=== PATIENT | female | born 1970 | race Caucasian/White ===

== ENCOUNTER 2017-01-13 19:18 | Emergency (ER) | payer OTHER ==
--- NOTE | 2017-01-13 19:51 | ED.PDOC ---
History of Present Illness - General Chief Complaint: GI Problem Stated Complaint: rectal bleeding Time Seen by Provider: 01/13/17 19:21 Information Source: patient, RN notes reviewed, Vital Signs reviewed Exam Limitations: no limitations - History of Present Illness Initial Comments: Patient comes in with c/o rectal bleeding. Started with some spotting yesterday but worsened today. Prior to the episodes of bleeding she has crampy abd pain that spreads from her bilateral upper quadrants to her LLQ. Reports there is so much bleeding that it sounds like she is urinating in the toilet. She had a similar episode about 2 months ago. The bleeding lasted for 17 days and then stopped. She did not get seen or evaluated for the prior episode. No fever or chills. No N/V/D/C. Abdominal Pain Onset Location: generalized abdomen Pain Radiation: LLQ Quality: moderate, burning, cramping Timing/Duration: 24 hours Improving Factors: nothing Worsening Factors: nothing Associated Symptoms: fatigue, syncope - She passed out at home 8 days ago, weakness Review of Systems - Review of Systems Constitutional: States: malaise, weakness. 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 Surgical History: other - Cardiac ablation X 3 - Vaccination History Hx Tetanus, Diphtheria Vaccination: Yes Hx Influenza Vaccination: Yes Hx Pneumococcal Vaccination: Yes Immunizations Up to Date: Yes - Social History Hx Alcohol Use: No 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 - Female History Patient is a Female of Child Bearing Age (10 -59 yrs old): Yes Family Medical History - Family History Mother Family History: Unknown Physical Exam - Physical Exam General Appearance: Alert, Comfortable, No apparent distress, Obese, Well Developed, Well Groomed, Well Hydrated, Well Nourished Respiratory: chest non-tender, lungs clear, normal breath sounds, no respiratory distress, no accessory muscle use Cardiovascular/Chest: no edema, no gallop, no murmur, tachycardia Gastrointestinal/Abdominal: normal bowel sounds, soft, tenderness - Diffusely tender - tenderness seems to follow her whole colon Rectal Exam: normal rectal tone, hemorrhoids Back Exam: normal inspection Neurologic: alert, normal mood/affect, oriented x 3 Skin Exam: normal color, warm/dry Progress - Progress Progress: 01/13/17 20:47 Discussed normal labs and CT results with patient. Since she is hemodynamically stable and not anemic will d/c home and have her follow up with GI. She is agreeable with the plan. - Results/Orders Results/Orders: Laboratory Tests 01/13/17 01/13/17 20:10 20:10 WBC 9.0 RBC 4.72 Hgb 13.4 Hct 40.8 MCV 86.5 MCH 28.4 MCHC 32.9 L RDW 15.4 H Plt Count 247 MPV 7.6 Absolute Neuts (auto) 6.10 Absolute Lymphs (auto) 2.00 Absolute Monos (auto) 0.60 Absolute Eos (auto) 0.30 Absolute Basos (auto) 0.10 Neutrophils % 67.6 Lymphocytes % 21.6 Monocytes % 6.7 Eosinophils % 2.8 Basophils % 1.3 Sodium 138 Potassium 3.4 L Chloride 106 Carbon Dioxide 24 Anion Gap 11.4 L BUN 14 Creatinine 0.58 L BUN/Creatinine Ratio 24.1 H Random Glucose 137 H Serum Osmolality 278.3 Calcium 9.0 Total Bilirubin 0.3 AST 19 ALT 18 Alkaline Phosphatase 92 Serum Total Protein 7.5 Albumin 3.7 Globulin 3.8 H Albumin/Globulin Ratio 1.0 L - EKG/XRAY/CT CT Ordered: Yes - Abd/Pel:Diverticulosis, o/w no acute findings per Radiology Departure - Departure Clinical Impression: Hemorrhoids, external without complications, Rectal bleeding Time of Disposition: 20:49 Disposition: Discharge to Home or Self Care Condition: Good Departure Forms: ED Discharge - Pt. Copy, Patient Portal Self Enrollment Instructions: DI for Rectal Bleeding Diet: resume usual diet Activity: increase activity as tolerated Referrals: DIANE LÓPEZ [Primary Care Provider] - 1-2 Weeks Lito Elam MD [Consulting Staff] - 1-2 Days
--- NOTE | 2017-01-13 20:39 | CT ---
PROCEDURE: Abdomen/Pelvis w/Contrast HISTORY: abd pain with rectal bleeding Indication: Same as above Comparison: None . Technique: CT of the abdomen and pelvis was done with intravenous contrast. Images were obtained from the lung base to the level of the pubic symphysis in axial plane, followed by orthogonal sagittal and coronal reconstruction. Oral contrast was not given for the study. The patient was injected with contrast intravenously, without any documented immediate adverse reactions. This exam was performed according to our departmental dose-optimization program, which includes automated exposure control, adjustment of the mA and/or KV according to the patient's size and/or use of iterative reconstruction technique. FINDINGS: Images through the lung bases do not show any focal infiltrates or pleural effusions. The liver, gallbladder, pancreas, spleen and the bilateral adrenal glands appear unremarkable. The bilateral kidneys enhance with contrast in a normal fashion. The urinary bladder is unremarkable. An IUD is seen in the endometrial canal of the anteverted uterus . The bilateral ureters and the bilateral periureteral soft tissues and fat planes are unremarkable. The small bowel appears unremarkable, without any evidence of small bowel obstruction or bowel wall thickening. There is no CT evidence of acute appendicitis, pericecal inflammatory change or ileocecal mesenteric adenitis. The ileocecal junction appears unremarkable. There is no CT evidence of acute colonic diverticulitis or colitis or large bowel obstruction. There is mild large bowel diverticulosis The splenic and portal veins are of normal caliber, without any filling defects. There is no pathological lymphadenopathy in the retroperitoneum or in the pelvic region. There is no evidence of free fluid or free air in the abdomen or the pelvic region. There is no clinically significant abdominal aortic aneurysm. There is no clinically significant inguinal or ventral hernia. The visualized lumbar spine shows underlying mild multilevel degenerative change . The paravertebral soft tissues are unremarkable. The remainder of the pelvic structures are unremarkable. IMPRESSION: There are no acute findings on the current study. Large bowel diverticulosis without CT evidence of acute diverticulitis. Location of Interpretation: [facility] Electronically signed by: Manuel Austin MD 01/13/2017 8:39 PM CDT
[2017-01-13 21:16] VITALS: BP 131/67; TEMP 98.7; O2SAT 95
== END 2017-01-13 21:05 | disposition home or self-care (01) ==
LOC: ER 19:18
DX: K64.4 Residual hemorrhoidal skin tags (principal); K62.5 Hemorrhage of anus and rectum; I51.89 Other ill-defined heart diseases; Z79.899 Other long term (current) drug therapy

== ENCOUNTER → 2018-01-13 | Outpatient (CLI) | payer BC, OTHER ==
--- NOTE | 2018-01-13 13:24 | CT ---
EXAM DESCRIPTION: Chest w/o Contrast : Computed Tomography. CLINICAL HISTORY: Z87.01 COMPARISON: CTA chest 03/11/2014. TECHNIQUE: Spiral-axial scans at 5.0 mm intervals through the lungs and thorax without IV contrast. 2.5 mm lung algorithm axial reconstructions. Coronal and sagittal 2.0 Mm reconstructions. Total Exam DLP: 939.87 mGy-cm. This exam was performed according to our departmental dose-optimization program which includes automated exposure control, adjustment of the mA and/or kV according to patient size and/or use of iterative reconstruction technique; to reduce radiation dose to as low as reasonably achievable (ALARA). FINDINGS: Focal 3 mm pleural thickening abutting the anterior lateral base of the right upper lobe. (Series 4, image 49). No abnormal pulmonary nodules. No masses or infiltrates. No pleural effusion or pneumothorax. Evaluation of the soft tissues of the chest mediastinum and hilum is limited due to lack of IV contrast. Partial visualization of the heterogeneously dense thyroid gland. Low-density nodule measuring 1.55 cm in the left lobe. Multiple lymph nodes in the axilla are enlarged but fatty hilums are noted. No soft tissue masses in the mediastinum or hilum. No abnormal calcifications. Bilateral subglandular saline breast implants. Minimal lobulation of the capsules bilaterally. No subdiaphragmatic fluid in the included peritoneal space. Partial visualization of the adrenal glands and spleen are normal density. Partial visualization of pancreas liver upper kidneys and gallbladder. Minimal spondylosis in the included thoracic spine. Degenerative changes in the left sternoclavicular joint. IMPRESSION: Small focal pleural thickening right upper lobe, otherwise unremarkable. No follow-up recommended. No parenchymal nodules masses or infiltrates. Limited evaluation of soft tissues without IV contrast. Multiple bilateral axillary lymph nodes but with fatty hilums. 1.5 cm incidental thyroid nodule in the left lobe of the thyroid gland. Recommend ultrasound follow-up based upon [facility] Best Practice recommendations for imaging follow-up of incidental thyroid nodules utilizing ACR/Enriquez protocol. Please see below*. * 1.Further evaluation by thyroid US recommended for: -Solitary ITN with high risk imaging features (locally invasive nodule or suspicious lymph nodes) -Solitary ITN of any size in pediatric pts. <= 18 years of age -Solitary ITN >= 1 cm in axial plane in pts. between 18 and 35 years of age -Solitary ITN >= 1.5 cm in axial plane in pts >= 35 years of age -Heterogeneous enlarged thyroid gland -ITN avid on FDG-PET or other nuclear medicine (MIBI and octreotide) scans. FNA biopsy is also recommended for PET avid nodules. 2.No f/u imaging is recommended for ITNs not meeting the above criteria. 3.For multiple thyroid nodules, the above recommendations for solitary ITN are to be applied to the largest nodule. 4.No US or f/u recommended for ITNs without high risk features in pts. with limited life expectancy or significant co-morbidities, unless clinically warranted. 5.These recommendations do not apply to pts. w/ increased risk for thyroid cancer or pts. with symptomatic thyroid disease. Recommendations for f/u of Incidental Thyroid Nodules (ITN) found on CT, MR, NM and Extrathyroidal US are based upon the ACR white paper and Enriquez 3-tiered system for managing ITNs: J Am Kumar Radiol. 2015 Oct;12(2): 143-50 Electronically signed by: Ralph Alanis MD 01/13/2018 1:23 PM CDT
== END ==
LOC: CT 11:12
PROVIDERS: ATTEND Nurse Practitioner
DX: J92.9 Pleural plaque without asbestos (principal); Z87.01 Personal history of pneumonia (recurrent)

== ENCOUNTER → 2018-09-21 | Outpatient (CLI) | payer BC ==
--- NOTE | 2018-09-21 16:31 | MAM ---
EXAM DESCRIPTION: 3D Diagnostic, Bilateral: Digital Mammography CLINICAL HISTORY: 47 yearsFemaleLEFT BREAST LUMP . Soreness and tenderness associated with palpable lumps in the upper posterior left breast. No personal history of breast cancer. Remote family history of ovarian cancer but not breast cancer. Childbirth. Has IUD. No HRT. Bilateral breast augmentation 2003.. Lifetime risk of developing breast cancer (Tyrer-Cuzick model) percentage is 7.8. COMPARISON: Left breast targeted ultrasound as part of this examination. No prior reports available.. TECHNIQUE: Bilateral CC LM MLO projection full-field images, digital mammographic tomosynthesis technique. CAD not utilized. FINDINGS: The breast parenchymal density pattern is: Scattered areas of fibroglandular density. No skin thickening or nipple retraction bilateral saline breast implants in the retromuscular position. Capsules appear intact bilaterally where seen. Skin marker over region of interest upper posterior third left breast 11:00 to 12:00. Lobulated mass densities anterior superior and slightly medial to the skin marker, middle third left breast. Not associated with microcalcifications. Left axillary lymph nodes. No new focal, stellate mass or density, focal asymmetry , and no suspicious microcalcifications right breast. ULTRASOUND: Scanning posterior superior left breast. Mostly fatty echotexture with minimal fibroglandular tissues. Circumscribed hypoechoic mass measuring 5.5 mm wider than tall orientation and mostly posterior shadowing. Nonvascular. 11:00, 8 cm from the nipple. At 10:00 position, possible septated hypoechoic circumscribed mass not vascular measuring 4.7 x 3.7 mm wider than tall orientation and mostly posterior shadowing. Nonvascular. Tender during scanning. Third hypoechoic mass at 10:00 position, 8 cm from the nipple, measures 2.1 x 3.3 mm cyst, circumscribed, wider than tall, and mixed posterior features. Nonvascular. These are most likely reactive lymph nodes. IMPRESSION: BI-RADS CATEGORY: 3 - PROBABLY BENIGN. Management: Short interval (6-month) follow-up diagnostic digital left breast ultrasound with targeted left breast ultrasound.. The FINDINGS and the FOLLOW-UP plan were reviewed in person with the patient after the examination. Written communication explaining the IMPRESSION and FOLLOW-UP will be mailed to the patient and referring care provider. Electronically signed by: Ralph Alanis MD 09/21/2018 4:30 PM [facility]
--- NOTE | 2018-09-21 16:32 | US ---
EXAM DESCRIPTION: Breast,Left: Ultrasound CLINICAL HISTORY: 47 yearsFemaleABNORMAL MAMMO COMPARISON: Digital diagnostic tomosynthesis bilateral breasts on this visit. TECHNIQUE: Transcutaneous scanning of the left breast utilizing hsu-scale and Doppler modes. Scanning performed by the enterostomal therapy nurse and Dr. Alanis. FINDINGS: Scanning posterior superior left breast. Mostly fatty echotexture with minimal fibroglandular tissues. Circumscribed hypoechoic mass measuring 5.5 mm wider than tall orientation and mostly posterior shadowing. Nonvascular. 11:00, 8 cm from the nipple. At 10:00 position, possible septated hypoechoic circumscribed mass not vascular measuring 4.7 x 3.7 mm wider than tall orientation and mostly posterior shadowing. Nonvascular. Third hypoechoic mass at 10:00 position, 8 cm from the nipple, measures 2.1 x 3.3 mm cyst, circumscribed, wider than tall, and mixed posterior features. Nonvascular. All 3 objects were not tender during scanning. Most likely reactive lymph nodes. IMPRESSION: 1. Bi-Rads Category 3: Probably Benign Findings. 2. Please refer to bilateral diagnostic digital breast tomosynthesis examination and report on this visit. The FINDINGS and the FOLLOW-UP plan were reviewed in person with the patient after the examination. Written communication explaining the IMPRESSION and FOLLOW-UP will be mailed to the patient and referring care provider. Electronically signed by: Ralph Alanis MD 09/21/2018 4:31 PM [facility]
== END ==
LOC: MAMMO 13:00
PROVIDERS: ATTEND Nurse Practitioner
DX: R92.8 Other abnormal and inconclusive findings on diagnostic imaging of breast (principal)
CPT/HCPCS: 76641; 77066; G0279

== ENCOUNTER → 2020-03-10 | Outpatient (CLI) | payer BC ==
--- NOTE | 2020-03-10 13:40 | MRI ---
Study: MRI of the Left Hip. Indication: LEFT HIP PAIN Technique: Multiplanar, multi sequence MRI of the left hip was obtained without intravenous contrast. Comparison: None. Findings: No acute fracture or osteonecrosis of the left hip. Subtle undersurface fraying anterior superior left hip labrum. Grade 2 chondral thinning throughout the left hip joint with tiny joint line osteophytes. A small 17 mm site of osteonecrosis noted at the anterior superior right femoral head without cortical collapse. Mild to moderate right and mild left sacroiliitis suspected. Mild pubic symphysis osteoarthritis. Pronounced intramuscular edema and expansion of the left obturator internus muscle with poor definition at its anterior pubic insertion where high-grade muscle tearing is suspected. In addition, there is irregular high-grade partial thickness tearing and attenuation left hamstring tendon origin with surrounding inflammation. Torn tendon fibers are proximally retracted by 3.5 cm. Millimetric cortical avulsion may be present at this site as well. Tendinosis of the right hamstring origin as well as the bilateral gluteus minimus/medius tendon insertions present. Mild interstitial edema within the left adductor musculature. Impression: High-grade partial thickness tearing anterior margin of the left obturator internus muscle Irregular high-grade partial thickness tearing left hamstring tendon origin. No acute femoral neck fracture. Tiny site of osteonecrosis of the anterior superior right femoral head without collapse. Mild left hip osteoarthritis. Additional findings as above. Electronically signed by: Dorian Mcgee MD 03/10/2020 1:38 PM CDT
== END ==
LOC: MRI 07:22
PROVIDERS: ATTEND General Practice
DX: S76.312A Strain of muscle, fascia and tendon of the posterior muscle group at thigh level, left thigh, initial encounter (principal); M16.12 Unilateral primary osteoarthritis, left hip; M87.9 Osteonecrosis, unspecified